=== PATIENT | male | born 1950 | race Hispanic/Latino ===

== ENCOUNTER 2018-09-20 00:11 | Emergency (ER) | payer OTHER ==
[2018-09-20 00:24] VITALS: RESP 18; O2SAT 98
--- NOTE | 2018-09-20 00:53 | ED PDOC ---
Arrival/HPI - General Chief Complaint: Male Genitourinary Time Seen by Provider: 09/20/18 00:34 Historian: Patient - History of Present Illness Narrative History of Present Illness (Text): 09/20/18 00:45 67 year old M with no significant pmh presents with cc of erection lasting about 4hrs. Patient reports that he took 30 units of prescribed Trimix earlier. Patient recalls 4yrs ago having an erection lasting more than 4hrs before, but with a different prescribed medication; it relieved after 4 hrs. His Urologist is Dr. Ld Du ([place], [place]). Patient denies any fevers, headache, dizziness, chest pain, shortness of breath. Time/Duration: 4-6 hours Symptom Onset: Sudden Symptom Course: Unchanged Activities at Onset: Light Context: Home Past Medical History - Provider Review Nursing Documentation Reviewed: Yes - Cardiac Hx Cardiac Disorders: Yes - Neurological Hx Neurological Disorder: Yes Hx Multiple Sclerosis: Yes - Psychiatric Hx Substance Use: No Family/Social History - Physician Review Nursing Documentation Reviewed: Yes Family/Social History: Unknown Family HX Smoking Status: Never Smoked Hx Alcohol Use: No Hx Substance Use: No Allergies/Home Meds Allergies/Adverse Reactions: Allergies Penicillins Adverse Reaction (Verified 09/20/18 00:21) RASH Home Medications: Home Meds Medication Instructions Recorded Confirmed Aspirin [Lo-Dose Aspirin EC] 81 mg PO DAILY 09/20/18 09/20/18 Esomeprazole Magnesium [Nexium] 40 mg PO DAILY PRN 09/20/18 09/20/18 Glatiramer Acetate [Copaxone] 40 mg SQ MWF 09/20/18 09/20/18 Simvastatin 40 mg PO DAILY 09/20/18 09/20/18 Review of Systems - Physician Review All systems were reviewed & negative as marked: Yes - Review of Systems Constitutional: Normal Eyes: Normal ENT: Normal Respiratory: Normal Cardiovascular: Normal Gastrointestinal: Normal Genitourinary Male: Other (erection lasting more than 4hrs.) Musculoskeletal: Normal Skin: Normal Neurological: Normal Endocrine: Normal Hemo/Lymphatic: Normal Psychiatric: Normal Physical Exam Vital Signs Reviewed: Yes Vital Signs Temp Pulse Resp BP Pulse Ox 09/20/18 00:21 98.2 F 95 H 18 158/103 H 98 Temperature: Afebrile Blood Pressure: Hypertensive Pulse: Tachycardic Respiratory Rate: Normal Appearance: Positive for: Well-Appearing, Non-Toxic, Comfortable Pain Distress: Mild Mental Status: Positive for: Alert and Oriented X 3 - Systems Exam Head: Present: Atraumatic, Normocephalic Pupils: Present: PERRL Extroacular Muscles: Present: EOMI Conjunctiva: Present: Normal Mouth: Present: Moist Mucous Membranes Neck: Present: Normal Range of Motion Respiratory/Chest: Present: Clear to Auscultation, Good Air Exchange. No: Respiratory Distress, Accessory Muscle Use Cardiovascular: Present: Tachycardic. No: Murmurs Abdomen: No: Tenderness, Distention, Peritoneal Signs Genitourinary Male: Present: Normal External Genitalia, Other (erect/engorged penis) Neurological: Present: GCS=15, Speech Normal Psychiatric: Present: Alert, Oriented x 3, Normal Insight, Normal Concentration Medical Decision Making ED Course and Treatment: 09/20/18 00:55 Impression: 67 year old M presents with cc of erection lasting 4hrs Differential Diagnosis included but are not limited to: Plan: -- Reassess and disposition Prior Visits: Notes and results from previous visits were reviewed. Progress Notes: 09/20/18 00:[address] Supa Chavez. Recommends giving patient oral Sudafed/cold compresses to area at this time. Dr. 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 09/20/18 03:29 Patient refuses to stay and wait for urologist.He spoke with by phone. Prefers to go to another medical facility to meet with his urologist and Leaving Against Medical Advice (AMA) - PA / [facility] ARCHITECT / Resident Statement MD/DO has reviewed & agrees with the documentation as recorded. - Scribe Statement The provider has reviewed the documentation as recorded by the Taiwo Hampton All medical record entries made by the Taiwo were at my direction and personally dictated by me. I have reviewed the chart and agree that the record accurately reflects my personal performance of the history, physical exam, medical decision making, and the department course for this patient. I have also personally directed, reviewed, and agree with the discharge instructions and disposition. Disposition/Present on Arrival - Present on Arrival Any Indicators Present on Arrival: No History of DVT/PE: No History of Uncontrolled Diabetes: No Urinary Catheter: No History of Decub. Ulcer: No History Surgical Site Infection Following: None - Disposition Have Diagnosis and Disposition been Completed?: Yes Diagnosis: Priapism, drug-induced Disposition: AGAINST MEDICAL ADVICE Disposition Time: 03:30 Condition: STABLE Referrals: FAMILY PROVIDER,NO [Primary Care Provider] - Follow up with primary Forms: SSN Funding ([place]ian)
[2018-09-20 02:37] VITALS: BP 156/89; PULSE 78; TEMP 98
[2018-09-20] MEDS ORDERED: Phenylephrine for priapism 0.1 mg/mL Syringe IN-CAVERNO SCH (02:45)
== END 2018-09-20 03:40 | disposition left against medical advice (07) ==
LOC: ED 00:11
DX: N48.33 Priapism, drug-induced (principal); G35 Multiple sclerosis